=== PATIENT | female | born 1955 | race Caucasian/White ===

== ENCOUNTER → 2024-09-07 10:53 | Outpatient (REF) | payer MEDICARE, SELFPAY | LOC: HWWDC 10:53 | PROVIDERS: ATTENDING PHYSICIAN Obstetrics & Gynecology; FAMILY PHYSICIAN Internal Medicine | DX: Z12.31 Encounter for screening mammogram for malignant neoplasm of breast (principal) | CPT/HCPCS: 77063; 77067 ==

== ENCOUNTER → 2025-03-02 16:28 | Outpatient (REF) | payer MEDICARE, SELFPAY | LOC: HWRAD 16:28 | PROVIDERS: ATTENDING PHYSICIAN Nurse Practitioner Adult Health | DX: M25.462 Effusion, left knee (principal); M25.562 Pain in left knee; G89.29 Other chronic pain; Z82.69 Family history of other diseases of the musculoskeletal system and connective tissue | CPT/HCPCS: 73564; 76882 ==

== ENCOUNTER 2025-05-09 06:15 | Day surgery (SDC) | payer MEDICARE, SELFPAY | END 2025-05-09 11:06 | disposition home or self-care (01) | LOC: GI 06:15 | PROVIDERS: ATTENDING PHYSICIAN Internal Medicine Gastroenterology | DX: R12 Heartburn (principal); K29.40 Chronic atrophic gastritis without bleeding; K44.9 Diaphragmatic hernia without obstruction or gangrene; K31.7 Polyp of stomach and duodenum; D51.0 Vitamin B12 deficiency anemia due to intrinsic factor deficiency; K31.A19 Gastric intestinal metaplasia without dysplasia, unspecified site; K31.89 Other diseases of stomach and duodenum; K29.50 Unspecified chronic gastritis without bleeding; K29.60 Other gastritis without bleeding; K31.A15 Gastric intestinal metaplasia without dysplasia, involving multiple sites | CPT/HCPCS: 43239; 88305 ==